=== PATIENT | male | born 1945 | race Caucasian/White ===

== ENCOUNTER 2017-03-16 09:09 | Inpatient (IN) | payer OTHER ==
[~2017-03-16] VITALS: Ht 180.3 cm; Wt 83.9 kg
--- NOTE | 2017-03-16 09:12 | Emergency Room Report ---
History of Present Illness General Chief Complaint: Chest Pain Source: Patient, EMS Present Illness HPI Patient is 71-year-old male who presented after increased chest pain. Patient reported having pain for approximately last 10 hours. This included some shortness of breath. Patient reported having improvement his pain with nitroglycerin. Patient had reportedly had prior heart attack approximately 10 years ago. Patient had been given aspirin and nitroglycerin by EMS. He had approximately one pack per day smoking history. Pain had onset during rest He noted no change in his leg swelling.Patient denied any fevers. Allergies: Coded Allergies: No Known Allergies (Unverified , 03/16/17) Patient History Past Medical History: see triage record Reviewed Nursing Documentation: PMH: Agreed, PSxH: Agreed Nursing Documentation-PMH Past Medical History: No History, Except For Hx Hypertension: Yes History Of Psychiatric Problem: Yes - Depression Review of Systems All Other Systems: negative except mentioned in HPI Physical Exam Vital Signs Date Time Temp Pulse Resp B/P (MAP) Pulse Ox O2 Delivery O2 Flow Rate FiO2 03/16/17 09:04 96.8 100 18 160/90 98 Nasal Cannula 2.0 Sp02 EP Interpretation: reviewed, normal General Appearance: normal inspection, well appearing, no apparent distress, alert, GCS 15, Chronically Ill Head: atraumatic ENT: normal ENT inspection, hearing grossly normal, normal voice Neck: normal inspection, full range of motion, supple, no bony tend Respiratory: normal inspection, lungs clear, normal breath sounds, no respiratory distress, no retraction, no wheezing Cardiovascular #1: regular rate, rhythm, no edema Gastrointestinal: normal inspection, normal bowel sounds, non tender, soft, no guarding, no hernia Genitourinary: no CVA tenderness Musculoskeletal: normal inspection, back normal, normal range of motion, swelling - trace bilaterally, other Neurologic: normal inspection, alert, oriented x3, responsive, salon professional III-XII nml as tested, speech normal Psychiatric: normal inspection, judgement/insight normal, mood/affect normal Skin: normal inspection, normal color, no rash Medical Decision Making Diagnostic Impression: Primary Impression: ACS (acute coronary syndrome) Additional Impression: Depression ER Course patient presented for chest pain.Differential diagnosis included but was not limited to acute coronary syndrome, pulmonary embolism, pneumonia, aortic dissection, shingles, pneumothorax, aortic dissection, esophageal rupture, pericarditis. Because of complexity of patient's case laboratory testing and imaging studies were ordered.He patient was given aspirin by paramedics. The EKG interpreted by me showed sinus rhythm with a rate of 71 with occasional PVCs. Patient was placed on monitoring and evaluation advisor. Patient was noted to haveInitially negative troponin. Dr. Aguilar was contacted for inpatient management due to complexity of medical condition. A CT of the chest read by radiology showed no evidence of acute pulmonary embolism. The patient noted have a slightly elevated white blood count. The patient had recently been discharged from the hospital after episode of depression Labs Test 03/16/17 09:20 03/16/17 16:00 White Blood Count 12.2 K/UL (4.8-10.8) Red Blood Count 5.38 M/UL (4.70-6.10) Hemoglobin 18.0 G/DL (14.2-18.0) Hematocrit 53.0 % (42.0-52.0) Mean Corpuscular Volume 99 FL (80-99) Mean Corpuscular Hemoglobin 33.4 PG (27.0-31.0) Mean Corpuscular Hemoglobin Concent 33.9 G/DL (32.0-36.0) Red Cell Distribution Width 12.7 % (11.6-14.8) Platelet Count 224 K/UL (150-450) Mean Platelet Volume 8.4 FL (6.5-10.1) Neutrophils (%) (Auto) 75.2 % (45.0-75.0) Lymphocytes (%) (Auto) 15.1 % (20.0-45.0) Monocytes (%) (Auto) 7.9 % (1.0-10.0) Eosinophils (%) (Auto) 0.2 % (0.0-3.0) Basophils (%) (Auto) 1.6 % (0.0-2.0) Prothrombin Time 10.0 SEC (9.30-11.50) Prothromb Time International Ratio 1.0 (0.9-1.1) Activated Partial Thromboplast Time 26 SEC (23-33) D-Dimer 1688 ng/mL (<500) Sodium Level 131 mEQ/L (135-145) Potassium Level 4.2 mEQ/L (3.4-4.9) Chloride Level 92 mEQ/L (98-107) Carbon Dioxide Level 24 mEQ/L (20-30) Anion Gap 15 (5-15) Blood Urea Nitrogen 19 mg/dL (7-23) Creatinine 1.1 mg/dL (0.7-1.2) Estimat Glomerular Filtration Rate mL/min (>60) Glucose Level 119 mg/dL (74-106) Calcium Level 10.0 mg/dL (8.6-10.2) Total Bilirubin 0.9 mg/dL (0.0-1.2) Aspartate Amino Transf (AST/SGOT) 29 U/L (5-40) Alanine Aminotransferase (ALT/SGPT) 71 U/L (3-41) Alkaline Phosphatase 84 U/L (40-129) Total Creatine Kinase 60 U/L (38-174) Creatine Kinase MB 3.2 ng/mL (< 6.7) Creatine Kinase MB Relative Index 5.3 Pro-B-Type Natriuretic Peptide 166 pg/mL (0-125) Total Protein 7.1 g/dL (6.6-8.7) Albumin 3.7 g/dL (3.5-5.2) Globulin 3.4 g/dL Albumin/Globulin Ratio 1.0 (1.0-2.7) EKG Diagnostic Results Rate: normal - 71 Rhythm: NSR ST Segments: no acute changes ASA given to the pt in ED: Yes Rhythm Strip Diag. Results EP Interpretation: yes Rhythm: NSR, no PVC's, no ectopy Last Vital Signs Date Time Temp Pulse Resp B/P (MAP) Pulse Ox O2 Delivery O2 Flow Rate FiO2 03/16/17 09:04 96.8 100 18 160/90 98 Nasal Cannula 2.0 Status: unchanged Disposition: ADMITTED INPATIENT Condition: Nate Butcher Mar 16, 2017 09:12
[2017-03-16] MEDS ORDERED: ATIVAN1 MG ORAL (09:47)
[2017-03-16] MEDS ORDERED: METOPROLOL TART25 MG ORAL (09:47)
[2017-03-16] MEDS ORDERED: DIOVAN160 MG ORAL (09:47)
[2017-03-16] MEDS ORDERED: VENLAFAXINE HC150 M2 ORAL (09:51)
[2017-03-16 09:52] LABS: BASOPHILS % (AUTO) 1.6 % (0.0-2.0); EOSINOPHILS % (AUTO) 0.2 % (0.0-3.0); LYMPHOCYTES % (AUTO) 15.1 % (20.0-45.0); MEAN CORPUSCULAR HEMOGLOBIN 33.4 PG (27.0-31.0); MEAN CORPUSCULAR HGB CONC 33.9 G/DL (32.0-36.0); MEAN CORPUSCULAR VOLUME 99 FL (80-99); MEAN PLATELET VOLUME 8.4 FL (6.5-10.1); MONOCYTES % (AUTO) 7.9 % (1.0-10.0); NEUTROPHILS % (AUTO) 75.2 % (45.0-75.0); PLATELET COUNT 224 K/UL (150-450); RED BLOOD COUNT 5.38 M/UL (4.70-6.10); RED CELL DISTRIBUTION WIDTH 12.7 % (11.6-14.8); WHITE BLOOD COUNT 12.2 K/UL (4.8-10.8)
[2017-03-16] MEDS ORDERED: CITALOPRAM HBR20 M1 ORAL (09:57)
[2017-03-16 10:07] LABS: ALANINE AMINOTRANSFERASE 71 U/L (3-41); ANION GAP 15 (5-15); ASPARTATE AMINO TRANSFERASE 29 U/L (5-40); CARBON DIOXIDE 24 mEQ/L (20-30); CHLORIDE 92 mEQ/L (98-107); CREATININE 1.1 mg/dL (0.7-1.2); HEMOLYSIS 7; POTASSIUM 4.2 mEQ/L (3.4-4.9); SODIUM 131 mEQ/L (135-145); TOTAL PROTEIN 7.1 g/dL (6.6-8.7); TROPONIN I < 0.30 ng/mL (<=0.30)
[2017-03-16 10:15] VITALS: BP 155/78
[2017-03-16 10:18] LABS: CKMB 3.2 ng/mL (< 6.7)
[2017-03-16 11:50] VITALS: BP 149/73
--- NOTE | 2017-03-16 12:30 | Diagnostic Imaging Report ---
ndication: SOB chest pain Technique: IV administration nonionic contrast. Spiral acquisitions obtained from the lung bases to the lung apices. Multiplanar and 3-D reconstructions were generated. Total dose length product 827 mGycm. CTDIvol(s) 12, 12, 25 mGy. Dose reduction achieved using automated exposure control Comparison: None Findings: There is some image degradation due to respiratory motion artifact at the lung bases. Pulmonary arteries are well opacified. No intraluminal filling defects to suggest acute pulmonary embolus demonstrated. No evidence of thoracic aortic aneurysm or dissection. Normal caliber pulmonary arteries. No right ventricular dilatation. Prominent fatty interatrial septum The lungs demonstrate posterior dependent atelectatic changes. There are scattered small bullous changes. No infiltrates, effusions, congestion, mass, or nodule demonstrated. The heart is enlarged. No pericardial effusion. No mediastinal or hilar mass or adenopathy. No axillary or chest wall mass or adenopathy. Included thyroid is unremarkable. The bones are unremarkable. The included upper abdominal anatomy is unremarkable Impression: Somewhat limited exam, due to respiratory motion artifact. No definite evidence of pulmonary embolus or other acute thoracic pathology Mild COPD changes Cardiomegaly The CT scanner at [facility] is accredited by the [employer] and the scans are performed using protocols designed to limit radiation exposure to as low as reasonably achievable to attain images of sufficient resolution adequate for diagnostic evaluation.
[2017-03-16 13:30] VITALS: BP 156/63
[2017-03-16 15:30] VITALS: BP 142/72
[2017-03-16] MEDS ORDERED: Morphine Sulfate 2mg/ml Inj IVP PRN (16:00)
[2017-03-16] MEDS ORDERED: Ketorolac 30mg Inj IV PRN (16:00)
[2017-03-16] MEDS ORDERED: Nitroglycerin Subl 0.4mg tab SL PRN (16:00)
[2017-03-16] MEDS ORDERED: dilTIAZem HCl 25mg/5ml Inj IV PRN (16:00)
[2017-03-16] MEDS ORDERED: Miralax 17gm pkt ORAL PRN (16:00)
[2017-03-16] MEDS ORDERED: Albuterol/Ipratropium 3ml neb HHN PRN (16:00)
--- NOTE | 2017-03-16 16:19 | Diagnostic Imaging Report ---
Indication: SOB Technique: One view of the chest Comparison: none Findings: There is minimal atelectasis or scarring at the left lateral lung base. Lungs and pleural spaces are otherwise clear. Heart is borderline enlarged. Impression: Borderline cardiomegaly No acute process
[2017-03-16 16:57] LABS: TROPONIN I < 0.30 ng/mL (<=0.30)
--- NOTE | 2017-03-16 17:49 | Cardiology Progress Note ---
Assessment/Plan Assessment/Plan atypical chest pain polycythemia htn tobacco use do hyponatermai repsorted hs of mi previously [id number] Objective Last 24 Hour Vital Signs Date Time Temp Pulse Resp B/P (MAP) Pulse Ox O2 Delivery O2 Flow Rate FiO2 03/16/17 17:08 64 16 142/60 99 Room Air 03/16/17 15:30 74 18 142/72 94 Nasal Cannula 2.0 03/16/17 13:30 62 15 156/63 95 Nasal Cannula 2.0 03/16/17 11:50 97.6 68 16 149/73 96 Nasal Cannula 2.0 03/16/17 10:15 97.6 70 16 155/78 97 Nasal Cannula 2.0 03/16/17 09:40 70 16 Nasal Cannula 2.0 03/16/17 09:04 96.8 100 18 160/90 98 Nasal Cannula 2.0 Intake and Output 03/16/17 03/17/17 19:00 07:00 Intake Total 0 ml Balance 0 ml Intake Oral 0 ml Laboratory Tests Test 03/16/17 09:20 03/16/17 16:00 White Blood Count 12.2 K/UL (4.8-10.8) H Red Blood Count 5.38 M/UL (4.70-6.10) Hemoglobin 18.0 G/DL (14.2-18.0) Hematocrit 53.0 % (42.0-52.0) H Mean Corpuscular Volume 99 FL (80-99) Mean Corpuscular Hemoglobin 33.4 PG (27.0-31.0) H Mean Corpuscular Hemoglobin Concent 33.9 G/DL (32.0-36.0) Red Cell Distribution Width 12.7 % (11.6-14.8) Platelet Count 224 K/UL (150-450) Mean Platelet Volume 8.4 FL (6.5-10.1) Neutrophils (%) (Auto) 75.2 % (45.0-75.0) H Lymphocytes (%) (Auto) 15.1 % (20.0-45.0) L Monocytes (%) (Auto) 7.9 % (1.0-10.0) Eosinophils (%) (Auto) 0.2 % (0.0-3.0) Basophils (%) (Auto) 1.6 % (0.0-2.0) Prothrombin Time 10.0 SEC (9.30-11.50) Prothromb Time International Ratio 1.0 (0.9-1.1) Activated Partial Thromboplast Time 26 SEC (23-33) D-Dimer 1688 ng/mL (<500) H Sodium Level 131 mEQ/L (135-145) L Potassium Level 4.2 mEQ/L (3.4-4.9) Chloride Level 92 mEQ/L (98-107) L Carbon Dioxide Level 24 mEQ/L (20-30) Anion Gap 15 (5-15) Blood Urea Nitrogen 19 mg/dL (7-23) Creatinine 1.1 mg/dL (0.7-1.2) Estimat Glomerular Filtration Rate mL/min (>60) Glucose Level 119 mg/dL (74-106) H Calcium Level 10.0 mg/dL (8.6-10.2) Total Bilirubin 0.9 mg/dL (0.0-1.2) Aspartate Amino Transf (AST/SGOT) 29 U/L (5-40) Alanine Aminotransferase (ALT/SGPT) 71 U/L (3-41) H Alkaline Phosphatase 84 U/L (40-129) Total Creatine Kinase 60 U/L (38-174) Creatine Kinase MB 3.2 ng/mL (< 6.7) Creatine Kinase MB Relative Index 5.3 Troponin I < 0.30 ng/mL (<=0.30) < 0.30 ng/mL (<=0.30) Pro-B-Type Natriuretic Peptide 166 pg/mL (0-125) H Total Protein 7.1 g/dL (6.6-8.7) Albumin 3.7 g/dL (3.5-5.2) Globulin 3.4 g/dL Albumin/Globulin Ratio 1.0 (1.0-2.7) VAN RESTREPO Mar 16, 2017 17:49
[2017-03-16] MEDS ORDERED: Enalaprilat 2.5mg/2ml Inj IV PRN (18:30)
[2017-03-16 20:26] VITALS: BP 154/61
[2017-03-16] MEDS: Heparin 5000 units/ml inj SUBQ SCH (20:27)
[2017-03-16] MEDS: LORazepam 1mg tab ORAL PRN (20:27)
[2017-03-17 00:10] VITALS: BP 140/71
[2017-03-17 03:29] VITALS: BP 129/75
[2017-03-17 07:16] LABS: BASOPHILS % (AUTO) 1.6 % (0.0-2.0); EOSINOPHILS % (AUTO) 0.9 % (0.0-3.0); LYMPHOCYTES % (AUTO) 18.9 % (20.0-45.0); MEAN CORPUSCULAR HEMOGLOBIN 33.7 PG (27.0-31.0); MEAN CORPUSCULAR HGB CONC 33.9 G/DL (32.0-36.0); MEAN CORPUSCULAR VOLUME 99 FL (80-99); MEAN PLATELET VOLUME 8.7 FL (6.5-10.1); NEUTROPHILS % (AUTO) 70.6 % (45.0-75.0); PLATELET COUNT 202 K/UL (150-450); RED BLOOD COUNT 5.05 M/UL (4.70-6.10); RED CELL DISTRIBUTION WIDTH 12.8 % (11.6-14.8); WHITE BLOOD COUNT 10.4 K/UL (4.8-10.8)
[2017-03-17 07:48] LABS: TROPONIN I < 0.30 ng/mL (<=0.30)
[2017-03-17 07:57] LABS: CHOLESTEROL/HDL RATIO 2.2 (3.3-4.4); CRP QUANT 2.3 mg/dL (< 0.5)
[2017-03-17 07:59] LABS: THYROID STIMULATING HORMONE 0.756 uIU/mL (0.300-4.500)
[2017-03-17] MEDS: Aspirin Baby 81mg ORAL SCH (08:29)
[2017-03-17] MEDS ORDERED: Pneumococcal Vaccine 25mcg/0.5ml IM ONE (08:30)
[2017-03-17] MEDS: Citalopram Hydrobromide 10mg Tab ORAL SCH (08:30)
[2017-03-17] MEDS: LORazepam 1mg tab ORAL PRN ×2 (08:30→18:09)
[2017-03-17] MEDS ORDERED: Flu Vaccine Quadrivalent 0.5ml IM ONE (08:30)
[2017-03-17 08:35] VITALS: BP 150/75
[2017-03-17] MEDS: Heparin 5000 units/ml inj SUBQ SCH ×2 (08:36→20:21)
[2017-03-17] MEDS ORDERED: Metoprolol Succinate XL 50mg tab ORAL SCH (09:00)
[2017-03-17] MEDS ORDERED: Venlafaxine XR 150mg cap ORAL SCH (09:00)
--- NOTE | 2017-03-17 09:02 | Consultation ---
DATE OF CONSULTATION: 03/16/2017 NOTE: "POOR AUDIO QUALITY" CARDIOLOGY CONSULTATION CONSULTING PHYSICIAN: Asif Garcia M.D. REFERRING PHYSICIAN: Dragan Aguilar M.D. REASON FOR REFERRAL: Chest pain. History of present illness: This is a 71-year-old gentleman, who presented to the hospital here at [facility] because of chest pain that started at about 11 o'clock last night in the left upper side of the chest. He has dry heaving. The chest pain continued to be present all the way throughout the night and throughout approximately 4 or 4:30 the day when this resolved. He does not experience any chest pain at the present time. He has noticed that the pain is dull sensation in that area and does get worse when he lies down on the right side or on the left side and it gets worse when he coughs. He has not really walked. There is no change with food. There is no PND or orthopnea. No palpitations. No dizziness. No lightheadedness. Past Medical History: Positive for high blood pressure. No diabetes. No high cholesterol. He has history of heart attack 10 years ago and treated elsewhere with no angioplasty, stent, or bypass surgery. No stroke. No hepatitis or tuberculosis. No asthma. No emphysema. No ulcers. No kidney problems, liver problems, thyroid problems, anemia, arthritis, prostate problems, HIV, AIDS, blood clots, or narrowing of any vessels. Medications: Medication for high blood pressure, but he has not taken for approximately 10 days as they have apparently been misplaced somewhere where he could not get to. ALLERGIES: He is not allergic to any medications. Social History: He smokes one and a half packs of cigarettes per day. He drinks one drink approximately every two weeks. No drug use. He is retired from international sales. His had approximately eight months ago. Review Of Systems: Gastrointestinal: He had dry heaves last night. No vomiting. No bloody stool or black stool. He does have some diarrhea. Genitourinary: Negative. Pulmonary: Positive for coughing and sputum production described as white. Constitutional: No fever, chills, night sweats, or weight loss. Neurologic: Negative. PHYSICAL EXAMINATION: General: Shows to be an elderly gentleman, in no respiratory distress. Vital signs: Blood pressure is anywhere between 142/60 to 155/78 with heart rate in the 60s to 70s. He has been afebrile since he came into the hospital. Neck: Supple. No jugular venous distention. He appears rather erythematous. LUNGS: Some rhonchi and some crackles noted on the left side. Cardiac: Regular rate and rhythm. No heaves, thrills, gallops, or rubs are noted. ABDOMEN: Soft and nontender. Positive bowel sounds. Extremities: There is no clubbing, cyanosis, nor is there any edema. Neurological: He is awake, alert, responsive, and in no apparent respiratory distress. Laboratory data: White count 12.3, hemoglobin 18, and platelet count of 224,000. Sodium 131, potassium 4.2, chloride 92, bicarbonate 24, BUN of 19, creatinine 1.1, glucose of 119, and calcium is 10.0. His proBNP is only 166, CK of 60, and two sets of cardiac enzymes are negative. Coagulation studies, INR is , PTT 20, and D-dimer 1688. Imaging studies: CT of the chest and thorax was performed, CTA that showed some due to respiratory motion artifact at the lung bases. Pulmonary artery is well opacified. No defect was noted to suggest pulmonary embolism. No aortic aneurysm or dissection. Prominent fatty interatrial septum. Lungs have posterior atelectasis changes, scattered bullous changes. No infiltrates, effusions, or congestions noted. The heart is enlarged. No pericardial effusion. No mediastinal masses. Cardiomegaly was noted. Mild COPD changes. A chest x-ray was performed, no acute processes chest x-rays. His EKG is fairly unremarkable, but he does have some premature atrial contractions. No significant ST-T wave abnormalities. ASSESSMENT AND PLAN: PROBLEMS: 1. Chest pain. 2. Polycythemia. 3. Hyponatremia. 4. Elevated blood sugars. 5. History of hypertension. 6. Prior history of myocardial infarction per the patient's report. Dr. Aguilar, this patient was seen in cardiac consultation. The chest pain is probably different than the chest pain he supposedly experienced with myocardial infarction, though I am not sure he actually truly did , and nevertheless, there are no electrocardiographic abnormalities. An echocardiogram will be ordered and the third set of cardiac enzymes will be performed. He does have some pulmonary findings with some rhonchi, some wheezes, and some sputum production; however, his chest x-ray does not show any pulmonary infiltrates. In light of the fact that he has some pulmonary wheezes, I doubt that he would be able to . There are no electrocardiographic changes to suggest infarction or ischemia at the present time. Two sets of cardiac enzymes are negative. He has some risk factors of coronary artery disease including the fact that he continues to smoke and he has history of hypertension and his lipid panel is not known, and will be ordered for tomorrow morning. I suspect because of his multiple risk factors of coronary artery disease, his ischemia evaluation may not be unreasonable to perform hopefully to help expedite his discharge from the hospital because that is the only reason he is here. The cause of polycythemia should be evaluated to see whether secondary to smoking or primary affect, that would be left to you. Asif Garcia M.D. DR: Kieran JOB#: [id number] CC:
[2017-03-17 11:51] VITALS: BP 116/72
--- NOTE | 2017-03-17 12:40 | History and Physical ---
History of Present Illness General Date patient seen: Mar 16, 2017 Reason for Hospitalization: Chest Pain Present Illness HPI 71-year-old male who presented after increased chest pain for approximately last 10 hours. This included some shortness of breath. Patient reported having improvement his pain with nitroglycerin. Patient had reportedly had prior heart attack approximately 10 years ago. Patient had been given aspirin and nitroglycerin by EMS. Pain had onset during rest He is admitted to telemetry for further work up. Allergies: Coded Allergies: No Known Allergies (Unverified , 03/16/17) Medication History Scheduled Citalopram Hydrobromide* (Citalopram Hbr*), 30 MG ORAL DAILY, (Reported) Metoprolol Tartrate* (Metoprolol Tartrate*), 50 MG ORAL DAILY, (Reported) Valsartan (Diovan), 160 MG ORAL DAILY, (Reported) Venlafaxine Hcl* (Venlafaxine Hcl Er*), 150 MG ORAL DAILY, (Reported) Scheduled PRN Lorazepam* (Ativan*), 1 MG ORAL BEDTIME PRN for For Anxiety, (Reported) Patient History Healthcare decision maker Resuscitation status Full Code Advanced Directive on File Past Medical/Surgical History Past Medical/Surgical History: (1) CAD (coronary artery disease) (2) Depression Review of Systems All Other Systems: negative except mentioned in HPI Physical Exam General Appearance: WD/WN Lines, tubes and drains: peripheral, PICC HEENT: normocephalic, anicteric Neck: non-tender, normal alignment Respiratory/Chest: chest wall non-tender, lungs clear Cardiovascular/Chest: normal peripheral pulses Abdomen: normal bowel sounds Genitourinary/Rectal: normal genital exam Extremities: normal range of motion Last 24 Hour Vital Signs Date Time Temp Pulse Resp B/P (MAP) Pulse Ox O2 Delivery O2 Flow Rate FiO2 03/17/17 11:51 98.4 53 18 116/72 95 Room Air 03/17/17 08:35 98.1 62 18 150/75 95 Room Air 03/17/17 08:30 55 129/75 03/17/17 08:00 61 03/17/17 04:00 55 03/17/17 03:29 97.7 67 20 129/75 95 Room Air 67 03/17/17 00:10 98.1 60 20 140/71 94 Room Air 60 03/17/17 00:00 70 9/27/17 21:58 60 16 Room Air 21 03/16/17 20:26 98.1 57 20 154/61 94 Room Air 03/16/17 20:00 67 03/16/17 17:08 64 16 142/60 99 Room Air 03/16/17 15:30 74 18 142/72 94 Nasal Cannula 2.0 03/16/17 13:30 62 15 156/63 95 Nasal Cannula 2.0 Intake and Output 03/17/17 03/18/17 19:00 07:00 Intake Total 240 ml Balance 240 ml Intake Oral 240 ml # Voids 1 Laboratory Tests Test 03/16/17 16:00 03/17/17 06:35 Troponin I < 0.30 ng/mL (<=0.30) < 0.30 ng/mL (<=0.30) White Blood Count 10.4 K/UL (4.8-10.8) Red Blood Count 5.05 M/UL (4.70-6.10) Hemoglobin 17.0 G/DL (14.2-18.0) Hematocrit 50.2 % (42.0-52.0) Mean Corpuscular Volume 99 FL (80-99) Mean Corpuscular Hemoglobin 33.7 PG (27.0-31.0) H Mean Corpuscular Hemoglobin Concent 33.9 G/DL (32.0-36.0) Red Cell Distribution Width 12.8 % (11.6-14.8) Platelet Count 202 K/UL (150-450) Mean Platelet Volume 8.7 FL (6.5-10.1) Neutrophils (%) (Auto) 70.6 % (45.0-75.0) Lymphocytes (%) (Auto) 18.9 % (20.0-45.0) L Monocytes (%) (Auto) 8.0 % (1.0-10.0) Eosinophils (%) (Auto) 0.9 % (0.0-3.0) Basophils (%) (Auto) 1.6 % (0.0-2.0) Prothrombin Time 10.0 SEC (9.30-11.50) Prothromb Time International Ratio 1.0 (0.9-1.1) Activated Partial Thromboplast Time 27 SEC (23-33) C-Reactive Protein, Quantitative 2.3 mg/dL (< 0.5) H Triglycerides Level 130 mg/dL (< 150) Cholesterol Level 179 mg/dL (< 200) LDL Cholesterol 71 mg/dL (60-99) HDL Cholesterol 82 mg/dL (> 60) H Cholesterol/HDL Ratio 2.2 (3.3-4.4) L Thyroid Stimulating Hormone (TSH) 0.756 uIU/mL (0.300-4.500) Height (Feet): 5 Height (Inches): 11.00 Weight (Pounds): 185 Medications Current Medications Medications (Trade) Dose Ordered Sig/Kevin Route PRN Reason Start Time Stop Time Status Last Admin Dose Admin Acetaminophen (Tylenol) 650 mg Q4H PRN ORAL FEVER>100.5 03/16/17 16:00 04/15/17 15:59 Albuterol/ Ipratropium (DuoNeb 0.5-3(2.5)mg/3ml) 3 ml Q4H PRN HHN Shortness of Breath 03/16/17 16:00 03/21/17 15:59 Aspirin (ASA) 162 mg DAILY ORAL 03/17/17 09:00 04/16/17 08:59 03/17/17 08:29 Citalopram Hydrobromide (celeXA) 30 mg DAILY ORAL 03/17/17 09:00 04/16/17 08:59 03/17/17 08:30 Diltiazem HCl (Cardizem) 10 mg Q1H PRN IV heart rate more than 120, 03/16/17 16:00 04/15/17 15:59 Enalaprilat (Vasotec) 2.5 mg EVERY 6 HOURS PRN IV sbp more than 160 03/16/17 18:30 04/15/17 18:29 Heparin Sodium (Porcine) (Heparin 5000 units/ml) 5,000 units EVERY 12 HOURS SUBQ 03/16/17 21:00 04/15/17 20:59 03/17/17 08:36 Ketorolac Tromethamine (Toradol 30mg) 30 mg Q6H PRN IV moderate pain ( 4-6) 03/16/17 16:00 03/21/17 15:59 Lorazepam (Ativan) 1 mg BEDTIME PRN ORAL For Anxiety 03/16/17 21:00 03/23/17 20:59 03/17/17 08:30 Metoprolol Succinate (Toprol XL) 50 mg DAILY ORAL 03/17/17 09:00 04/16/17 08:59 03/17/17 08:30 Morphine Sulfate (Morphine Sulfate) 2 mg Q4H PRN IVP severe Pain (Pain Scale 7-10) 03/16/17 16:00 03/23/17 15:59 Nitroglycerin (Ntg) 0.4 mg Q5M PRN SL Prn Chest Pain 03/16/17 16:00 04/15/17 15:59 Ondansetron HCl (Zofran) 4 mg Q6H PRN IVP Nausea & Vomiting 03/16/17 16:00 04/15/17 15:59 Pantoprazole (Protonix) 40 mg ACBREAKFAST ORAL 03/17/17 06:30 04/16/17 06:29 03/17/17 06:06 Polyethylene Glycol (Miralax) 17 gm DAILYPRN PRN ORAL Constipation 03/16/17 16:00 04/15/17 15:59 Temazepam (Restoril) 15 mg HSPRN PRN ORAL Insomnia 03/16/17 21:00 03/23/17 20:59 Assessment/Plan Problem List: (1) ACS (acute coronary syndrome) ICD Codes: I24.9 - Acute ischemic heart disease, unspecified SNOMED: 931696411 (2) CAD (coronary artery disease) ICD Codes: I25.10 - Atherosclerotic heart disease of [place] coronary artery without angina pectoris SNOMED: 49133257 (3) Depression ICD Codes: F32.9 - Major depressive disorder, single episode, unspecified SNOMED: 61633685 Assessment/Plan serial ekg, troponin, echo stress studies cardiology to see. JASON HALL Mar 17, 2017 12:40
--- NOTE | 2017-03-17 12:41 | Pulmonology Progress Note ---
Assessment/Plan Problems: (1) ACS (acute coronary syndrome) (2) CAD (coronary artery disease) (3) Depression Assessment/Plan troponin negative review telemetry f/u cardiology recommendations Subjective ROS Limited/Unobtainable: No Interval Events: no new complains Allergies: Coded Allergies: No Known Allergies (Unverified , 03/16/17) Objective Last 24 Hour Vital Signs Date Time Temp Pulse Resp B/P (MAP) Pulse Ox O2 Delivery O2 Flow Rate FiO2 03/17/17 11:51 98.4 53 18 116/72 95 Room Air 03/17/17 08:35 98.1 62 18 150/75 95 Room Air 03/17/17 08:30 55 129/75 03/17/17 08:00 61 03/17/17 04:00 55 03/17/17 03:29 97.7 67 20 129/75 95 Room Air 67 03/17/17 00:10 98.1 60 20 140/71 94 Room Air 60 03/17/17 00:00 70 03/16/17 21:58 60 16 Room Air 21 03/16/17 20:26 98.1 57 20 154/61 94 Room Air 03/16/17 20:00 67 03/16/17 17:08 64 16 142/60 99 Room Air 03/16/17 15:30 74 18 142/72 94 Nasal Cannula 2.0 03/16/17 13:30 62 15 156/63 95 Nasal Cannula 2.0 Intake and Output 03/17/17 03/18/17 19:00 07:00 Intake Total 240 ml Balance 240 ml Intake Oral 240 ml # Voids 1 General Appearance: WD/WN HEENT: normocephalic, atraumatic Respiratory/Chest: chest wall non-tender, lungs clear Cardiovascular: normal peripheral pulses, normal rate Abdomen: normal bowel sounds, soft, non tender Extremities: no cyanosis Neurologic/Psychiatric: menu planner II-XII grossly normal Laboratory Tests 03/16/17 16:00: Troponin I < 0.30 03/17/17 06:35: Troponin I < 0.30, White Blood Count 10.4, Red Blood Count 5.05, Hemoglobin 17.0 , Hematocrit 50.2, Mean Corpuscular Volume 99, Mean Corpuscular Hemoglobin 33.7H , Mean Corpuscular Hemoglobin Concent 33.9, Red Cell Distribution Width 12.8, Platelet Count 202, Mean Platelet Volume 8.7, Neutrophils (%) (Auto) 70.6, Lymphocytes (%) (Auto) 18.9L, Monocytes (%) (Auto) 8.0, Eosinophils (%) (Auto) 0.9, Basophils (%) (Auto) 1.6, Prothrombin Time 10.0, Prothromb Time International Ratio 1.0, Activated Partial Thromboplast Time 27, C-Reactive Protein, Quantitative 2.3H, Triglycerides Level 130, Cholesterol Level 179, LDL Cholesterol 71, HDL Cholesterol 82H, Cholesterol/HDL Ratio 2.2L, Thyroid Stimulating Hormone (TSH) 0.756 Current Medications Medications (Trade) Dose Ordered Sig/Kevin Route PRN Reason Start Time Stop Time Status Last Admin Dose Admin Acetaminophen (Tylenol) 650 mg Q4H PRN ORAL FEVER>100.5 03/16/17 16:00 04/15/17 15:59 Albuterol/ Ipratropium (DuoNeb 0.5-3(2.5)mg/3ml) 3 ml Q4H PRN HHN Shortness of Breath 03/16/17 16:00 03/21/17 15:59 Aspirin (ASA) 162 mg DAILY ORAL 03/17/17 09:00 04/16/17 08:59 03/17/17 08:29 Citalopram Hydrobromide (celeXA) 30 mg DAILY ORAL 03/17/17 09:00 04/16/17 08:59 03/17/17 08:30 Diltiazem HCl (Cardizem) 10 mg Q1H PRN IV heart rate more than 120, 03/16/17 16:00 04/15/17 15:59 Enalaprilat (Vasotec) 2.5 mg EVERY 6 HOURS PRN IV sbp more than 160 03/16/17 18:30 04/15/17 18:29 Heparin Sodium (Porcine) (Heparin 5000 units/ml) 5,000 units EVERY 12 HOURS SUBQ 03/16/17 21:00 04/15/17 20:59 03/17/17 08:36 Ketorolac Tromethamine (Toradol 30mg) 30 mg Q6H PRN IV moderate pain ( 4-6) 03/16/17 16:00 03/21/17 15:59 Lorazepam (Ativan) 1 mg BEDTIME PRN ORAL For Anxiety 03/16/17 21:00 03/23/17 20:59 03/17/17 08:30 Metoprolol Succinate (Toprol XL) 50 mg DAILY ORAL 03/17/17 09:00 04/16/17 08:59 03/17/17 08:30 Morphine Sulfate (Morphine Sulfate) 2 mg Q4H PRN IVP severe Pain (Pain Scale 7-10) 03/16/17 16:00 03/23/17 15:59 Nitroglycerin (Ntg) 0.4 mg Q5M PRN SL Prn Chest Pain 03/16/17 16:00 04/15/17 15:59 Ondansetron HCl (Zofran) 4 mg Q6H PRN IVP Nausea & Vomiting 03/16/17 16:00 04/15/17 15:59 Pantoprazole (Protonix) 40 mg ACBREAKFAST ORAL 03/17/17 06:30 04/16/17 06:29 03/17/17 06:06 Polyethylene Glycol (Miralax) 17 gm DAILYPRN PRN ORAL Constipation 03/16/17 16:00 04/15/17 15:59 Temazepam (Restoril) 15 mg HSPRN PRN ORAL Insomnia 03/16/17 21:00 03/23/17 20:59 JASON HALL Mar 17, 2017 12:41
[2017-03-17 15:41] VITALS: BP 115/51
--- NOTE | 2017-03-17 20:01 | Cardiology Progress Note ---
Assessment/Plan Assessment/Plan 1. Chest pain. 2. Polycythemia. 3. Hyponatremia. 4. Elevated blood sugars. 5. History of hypertension. 6. Prior history of myocardial infarction per the patient's report all trop neg hgb improved may be with dilution stress test tomorrow Subjective Cardiovascular: Denies: chest pain, lightheadedness Respiratory: Denies: shortness of breath Gastrointestinal/Abdominal: Denies: abdominal pain Genitourinary: Denies: burning Objective Last 24 Hour Vital Signs Date Time Temp Pulse Resp B/P (MAP) Pulse Ox O2 Delivery O2 Flow Rate FiO2 03/17/17 16:00 54 03/17/17 15:41 98.1 50 18 115/51 95 Room Air 03/17/17 12:00 50 03/17/17 11:51 98.4 53 18 116/72 95 Room Air 03/17/17 08:35 98.1 62 18 150/75 95 Room Air 03/17/17 08:30 55 129/75 03/17/17 08:00 61 03/17/17 07:57 62 18 Room Air 03/17/17 04:00 55 03/17/17 03:29 97.7 67 20 129/75 95 Room Air 67 03/17/17 00:10 98.1 60 20 140/71 94 Room Air 60 03/17/17 00:00 70 03/16/17 21:58 60 16 Room Air 21 03/16/17 20:26 98.1 57 20 154/61 94 Room Air General Appearance: alert Neck: supple Cardiovascular: normal rate, regular rhythm Respiratory/Chest: rhonchi - left Abdomen: normal bowel sounds, non tender, soft Extremities: no swelling Intake and Output 03/17/17 03/18/17 19:00 07:00 Intake Total 480 ml Balance 480 ml Intake Oral 480 ml # Voids 3 Laboratory Tests Test 03/17/17 06:35 White Blood Count 10.4 K/UL (4.8-10.8) Red Blood Count 5.05 M/UL (4.70-6.10) Hemoglobin 17.0 G/DL (14.2-18.0) Hematocrit 50.2 % (42.0-52.0) Mean Corpuscular Volume 99 FL (80-99) Mean Corpuscular Hemoglobin 33.7 PG (27.0-31.0) H Mean Corpuscular Hemoglobin Concent 33.9 G/DL (32.0-36.0) Red Cell Distribution Width 12.8 % (11.6-14.8) Platelet Count 202 K/UL (150-450) Mean Platelet Volume 8.7 FL (6.5-10.1) Neutrophils (%) (Auto) 70.6 % (45.0-75.0) Lymphocytes (%) (Auto) 18.9 % (20.0-45.0) L Monocytes (%) (Auto) 8.0 % (1.0-10.0) Eosinophils (%) (Auto) 0.9 % (0.0-3.0) Basophils (%) (Auto) 1.6 % (0.0-2.0) Prothrombin Time 10.0 SEC (9.30-11.50) Prothromb Time International Ratio 1.0 (0.9-1.1) Activated Partial Thromboplast Time 27 SEC (23-33) Troponin I < 0.30 ng/mL (<=0.30) C-Reactive Protein, Quantitative 2.3 mg/dL (< 0.5) H Triglycerides Level 130 mg/dL (< 150) Cholesterol Level 179 mg/dL (< 200) LDL Cholesterol 71 mg/dL (60-99) HDL Cholesterol 82 mg/dL (> 60) H Cholesterol/HDL Ratio 2.2 (3.3-4.4) L Thyroid Stimulating Hormone (TSH) 0.756 uIU/mL (0.300-4.500) VAN RESTREPO Mar 17, 2017 20:01
[2017-03-17 20:24] VITALS: BP 109/51
[2017-03-18 00:11] VITALS: BP 137/71
[2017-03-18 03:41] VITALS: BP 137/65
[2017-03-18 07:46] LABS: TROPONIN I < 0.30 ng/mL (<=0.30)
[2017-03-18] MEDS: Citalopram Hydrobromide 10mg Tab ORAL SCH (08:02)
[2017-03-18] MEDS: Aspirin Baby 81mg ORAL SCH (08:03)
[2017-03-18] MEDS: Heparin 5000 units/ml inj SUBQ SCH (08:05)
[2017-03-18 08:33] VITALS: BP 147/70
[2017-03-18] MEDS ORDERED: Adenosine Inj IVP ONE (10:45)
[2017-03-18 12:00] VITALS: BP 159/68
[2017-03-18] MEDS ORDERED: ASPIRIN81 MG ORAL (12:25)
--- NOTE | 2017-03-18 12:34 | Pulmonology Progress Note ---
Assessment/Plan Problems: (1) ACS (acute coronary syndrome) (2) CAD (coronary artery disease) (3) Depression Assessment/Plan troponin negative review telemetry f/u cardiology recommendations dc home if stress test negative Subjective Interval Events: in middle of stress test Constitutional: Reports: no symptoms Allergies: Coded Allergies: No Known Allergies (Unverified , 03/16/17) Objective Last 24 Hour Vital Signs Date Time Temp Pulse Resp B/P (MAP) Pulse Ox O2 Delivery O2 Flow Rate FiO2 03/18/17 08:33 98.4 54 18 147/70 95 Room Air 03/18/17 08:00 55 03/18/17 04:00 54 03/18/17 03:41 98.1 53 20 137/65 97 Room Air 03/18/17 00:11 98.0 56 20 137/71 94 Room Air 03/18/17 00:00 52 03/17/17 20:24 97.9 51 20 109/51 94 Room Air 03/17/17 20:10 56 18 Room Air 03/17/17 20:00 50 03/17/17 16:00 54 03/17/17 15:41 98.1 50 18 115/51 95 Room Air Intake and Output 03/18/17 03/19/17 19:00 07:00 Intake Total 360 ml Balance 360 ml Intake Oral 360 ml General Appearance: WD/WN HEENT: normocephalic, atraumatic Respiratory/Chest: chest wall non-tender, lungs clear Cardiovascular: normal rate, regular rhythm Abdomen: normal bowel sounds, soft, non tender Genitourinary: normal external genitalia Extremities: no clubbing Skin: no rash, no lesions Microbiology Date/Time Source Procedure Growth Status 03/16/17 14:10 Nasal Nares MRSA Culture - Final NO METHICILLIN RESISTANT STAPH AUREUS... Complete 03/16/17 14:10 Rectum VRE Culture - Final NO VANCOMYCIN RESISTANT ENTEROCOCCUS ... Complete Laboratory Tests 03/18/17 06:00: Troponin I < 0.30 Current Medications Medications (Trade) Dose Ordered Sig/Kevin Route PRN Reason Start Time Stop Time Status Last Admin Dose Admin Acetaminophen (Tylenol) 650 mg Q4H PRN ORAL FEVER>100.5 03/16/17 16:00 04/15/17 15:59 Albuterol/ Ipratropium (DuoNeb 0.5-3(2.5)mg/3ml) 3 ml Q4H PRN HHN Shortness of Breath 03/16/17 16:00 03/21/17 15:59 Aspirin (ASA) 162 mg DAILY ORAL 03/17/17 09:00 04/16/17 08:59 03/18/17 08:03 Citalopram Hydrobromide (celeXA) 30 mg DAILY ORAL 03/17/17 09:00 04/16/17 08:59 03/18/17 08:02 Diltiazem HCl (Cardizem) 10 mg Q1H PRN IV heart rate more than 120, 03/16/17 16:00 04/15/17 15:59 Enalaprilat (Vasotec) 2.5 mg EVERY 6 HOURS PRN IV sbp more than 160 03/16/17 18:30 04/15/17 18:29 Heparin Sodium (Porcine) (Heparin 5000 units/ml) 5,000 units EVERY 12 HOURS SUBQ 03/16/17 21:00 04/15/17 20:59 03/18/17 08:05 Ketorolac Tromethamine (Toradol 30mg) 30 mg Q6H PRN IV moderate pain ( 4-6) 03/16/17 16:00 03/21/17 15:59 Lorazepam (Ativan) 1 mg BEDTIME PRN ORAL For Anxiety 03/16/17 21:00 03/23/17 20:59 03/17/17 18:09 Morphine Sulfate (Morphine Sulfate) 2 mg Q4H PRN IVP severe Pain (Pain Scale 7-10) 03/16/17 16:00 03/23/17 15:59 Nitroglycerin (Ntg) 0.4 mg Q5M PRN SL Prn Chest Pain 03/16/17 16:00 04/15/17 15:59 Ondansetron HCl (Zofran) 4 mg Q6H PRN IVP Nausea & Vomiting 03/16/17 16:00 04/15/17 15:59 Pantoprazole (Protonix) 40 mg ACBREAKFAST ORAL 03/17/17 06:30 04/16/17 06:29 03/18/17 06:06 Polyethylene Glycol (Miralax) 17 gm DAILYPRN PRN ORAL Constipation 03/16/17 16:00 04/15/17 15:59 Temazepam (Restoril) 15 mg HSPRN PRN ORAL Insomnia 03/16/17 21:00 03/23/17 20:59 JASON HALL Mar 18, 2017 12:33
--- NOTE | 2017-03-18 17:17 | Diagnostic Imaging Report ---
Indications: Chest pain Technique: Single day single isotope protocol utilized. Initially, resting images obtained using IV administration 10.2 millicuries 99M technetium Myoview. Subsequently, patient underwent adenosine with walking stress testing. See cardiology report for details. During adenosine infusion with walking, IV administration 32.2 mCi 99 M technetium Myoview. SPECT and planar images obtained. SPECT images gated to 8 phases of the cardiac cycle were also obtained, and reformatted into cine images for evaluation of ejection fraction. Comparison: None Findings: Per cardiology report, patient experienced no symptoms. Per cardiology report, resting EKG demonstrates sinus bradycardia. No ST-T wave changes reported during infusion. Imaging demonstrates a small post stress perfusion defect in the anteroseptal wall near the apex, which appears first on the short axis image, less convincingly reversible on either set of long axis images. Normal cardiac chamber size. Calculated post stress ejection fraction 71%. No focal wall motion abnormality Impression: Nonischemic clinical response to pharmacologic stress, per cardiology report Nonischemic electrocardiographic response to pharmacologic stress, per cardiology report Small perfusion defect in the anteroseptal wall and apex, equivocally reversible. This may represent a small area of ischemia versus infarct Calculated post stress ejection fraction greater than 70%
--- NOTE | 2017-03-19 10:36 | Cardiology Report ---
APPROVED REPORT EXAM: Two-dimensional and M-mode echocardiogram with Doppler and color Doppler. INDICATION Left ventricular function M-Mode DIMENSIONS IVSd1.0 (0.7-1.1cm)Left Atrium (MM)4.9 (1.6-4.0cm) LVDd5.4 (3.5-5.6cm)Aortic Root3.0 (2.0-3.7cm) PWd1.2 (0.7-1.1cm)Aortic Cusp Exc.2.0 (1.5-2.0cm) LVDs3.9 (2.5-4.0cm) PWs1.1 cm Normal left ventricular chamber size, systolic function and wall motion. Left ventricular ejection fraction estimated to be 60-65%. No evidence of left ventricular hypertrophy. No evidence of pericardial or pleural effusion. Right cardiac chamber sizes are within normal limits. Mild left atrial enlargement by 2D. Focal aortic valve sclerosis with adequate cusp excursion. Thickened mitral valve leaflets with normal excursion. Mild mitral annulus and aortic root calcification. Pulmonic valve not well visualized. Normal tricuspid valve structure. IVC is normal in size and collapsible with respiration. A color flow and spectral Doppler study was performed and revealed: Mild aortic regurgitation. No mitral regurgitation. Mitral diastolic velocities suggest reduced left ventricular relaxation c/w diastolic dysfunction grade 1. No tricuspid regurgitation.
[2017-03-21] MEDS ORDERED: PROTONIX40 MG ORAL (08:22)
--- NOTE | 2017-03-21 10:27 | Discharge Summary ---
Discharge Summary Hospital Course Date of Admission Mar 16, 2017 at 11:18 Date of Discharge Mar 18, 2017 at 14:30 Admitting Diagnosis chest pain, acs HPI Rafita Mcwilliams is a 71 year old male who was admitted on Mar 16, 2017 at 11:18 for Chest Pain, Acute Coronary Syndrome Hospital Course dc summary #[id number] Discharge Medications New Medications: Pantoprazole* (Protonix*) 40 Mg Tablet.dr 40 MG ORAL DAILY, #30 TAB Aspirin* (Aspirin*) 81 Mg Tab.chew 162 MG ORAL DAILY for 30 Days, TAB Continued Medications: Citalopram Hydrobromide* (Citalopram Hbr*) 20 Mg Tablet 30 MG ORAL DAILY, TAB Lorazepam* (Ativan*) 1 Mg Tablet 1 MG ORAL BEDTIME PRN for For Anxiety, TAB Metoprolol Tartrate* (Metoprolol Tartrate*) 25 Mg Tablet 50 MG ORAL DAILY, TAB Venlafaxine Hcl* (Venlafaxine Hcl Er*) 150 Mg Tab.er.24 150 MG ORAL DAILY, TAB Discharge Condition Upon Discharge: stable Discharge Disposition Patient was discharged to Home () Discharge Diagnoses: Discharge Instructions Discharge Instructions Special Instructions I have been assigned to complete a D/C Summary on this account. I was not involved in the patient management Julisa Short NP (Vanchtein) Mar 21, 2017 10:27
--- NOTE | 2017-03-21 23:30 | Discharge Summary 2 SIG ---
DATE OF ADMISSION: 03/16/2017 DATE OF DISCHARGE: 03/18/2017 Reason For Admission: 71-year-old male with past medical history history of hypertension, GERD, depression, and history of myocardial infarction about 10 years ago, presented with chest pain for the last 10 hours with associated shortness of breath. The patient was reported improvement of pain with nitroglycerin. The patient was given nitroglycerin and aspirin by paramedics. The patient had one pack a day smoking history. Pain started during the rest. No leg swelling. No fevers. Workup in the emergency room revealed stable vital signs except blood pressure was slightly elevated at 160/90 .Pulse oximetry was 98% on two liters of oxygen. EKG revealed sinus rhythm, no acute ischemic changes. Troponin was negative. D-dimer was elevated - 1688. Pro BNP - 166. Chest x-ray was negative for any acute cardiopulmonary pathology, but revealed borderline cardiomegaly. The patient undergone CTA in the emergency department due to elevated D-dimer, which revealed no evidence of acute pulmonary emboli, but showed mild chronic obstructive pulmonary disease changes. The patient was admitted for further workup. ADMITTING DIAGNOSES: 1. Chest pain. 2. Possible acute coronary syndrome. 3. Depression. 4. Gastroesophageal reflux disease. 5. History of myocardial infarction. Hospital Stay: The patient was admitted to telemetry floor. Cardiology consult was requested. Serial troponin were negative. Repeated EKG revealed no acute ischemic changes. Echo revealed preserved ejection fraction of 60% to 65%. Subsequently, lipid panel was within normal limits. TSH was within normal limits. Teasel Gig Operator recommended stress test due to the history of coronary artery disease. Nuclear test was nonischemic with calculated ejection fraction above 70%. Blood pressure was controlled with the current regimen and was stable. The patient was counseled on smoking cessation. The patient was continued on aspirin, statin, and beta-jordyn. Chest pain was atypical, possibly due to GERD . Celexa and Effexor were continued. DVT and GI prophylaxes provided. The patient was stable for discharge. FINAL DIAGNOSES: 1. Atypical chest pain, possibly due to GERD 2. Coronary artery disease. 3. Gastroesophageal reflux disease. 4. Depression. 5. Hypertension. DISCHARGE MEDICATIONS: See medication reconciliation list. DISCHARGE INSTRUCTIONS: The patient was discharged home. FOLLOWUP: Followup with primary medical doctor and faith doctor. Dragan Aguilar M.D. I have been assigned to dictate discharge summary on this account and I was not involved in the patient's management. Julisa Short (Vanchtein) NCarrillo DR: OZ JOB#: [id number] CC: COLT
--- NOTE | 2017-03-26 02:09 | Cardiology Report ---
APPROVED REPORT EKG Measurement Heart [id number] Normal sinus rhythm Normal ECG
--- NOTE | 2017-03-26 02:11 | Cardiology Report ---
APPROVED REPORT EKG Measurement Heart [id number] Sinus rhythm with premature atrial complexes Otherwise normal ECG
--- NOTE | 2017-03-26 02:13 | Cardiology Report ---
APPROVED REPORT EKG Measurement Heart [id number] Sinus rhythm with sinus arrhythmia with occasional premature ventricular complexes Otherwise normal ECG
== END 2017-03-18 14:30 | disposition home or self-care (01) | DRG 313 ==
LOC: EDBD 09:09 → EMR 10:35 → 2E 11:18 → EDBEDREQ 15:42 → 2E 23:12
DX: R07.89 Other chest pain (principal); I25.2 Old myocardial infarction; E87.1 Hypo-osmolality and hyponatremia; R00.1 Bradycardia, unspecified; J44.9 Chronic obstructive pulmonary disease, unspecified; D75.1 Secondary polycythemia; I10 Essential (primary) hypertension; Z23 Encounter for immunization; F32.89 Other specified depressive episodes; Z72.0 Tobacco use; K21.9 Gastro-esophageal reflux disease without esophagitis
CPT/HCPCS: 36415; 71010; 71275; 78452; 80053; 80061; 82550; 82553; 83880; 84443; 84484; 85025; 85379; 85610; 85730; 86140; 87081; 90630; 90732; 93005; 93017; 93306; 94664; 99285